=== PATIENT | female | born 1990 | race Two or more races ===

== ENCOUNTER 2023-10-23 00:20 | Emergency (ER) | payer OTHER ==
[~2023-10-23] VITALS: Ht 157.5 cm; Wt 52.1 kg
[2023-10-23] MEDS: DexAMETHasone SOD PHOS 10MG/1ML VIAL INJ IM ONE (02:53)
[2023-10-23] MEDS: KETOROLAC TROMETH 30 MG/ML 1ML VIAL IM ONE (02:56)
[2023-10-23 03:02] LABS: Rapid Strep A Screen-Throat Negative
[2023-10-23 03:14] LABS: Rapid Influenza A Negative (Negative); Rapid Influenza B Negative (Negative)
[2023-10-23 03:15] LABS: COVID19 ANTIGEN SOFIA FIA NEGATIVE (NEGATIVE)
[2023-10-23] MEDS ORDERED: IBUP1TAB5 PO (03:20)
[2023-10-23 03:46] VITALS: BP 121/76; PULSE 110; RESP 20; TEMP 98.8
[2023-10-23 03:56] VITALS: O2SAT 100
== END 2023-10-23 04:03 | disposition home or self-care (01) ==
LOC: ER 00:20
DX: J02.9 Acute pharyngitis, unspecified (principal); Z20.822 Contact with and (suspected) exposure to COVID-19
CPT/HCPCS: 36415; 87070; 87426; 87804; 87880; 96372; 99284; J1100; J1885